=== PATIENT | female | born 1935 | race Caucasian/White ===

== ENCOUNTER 2017-02-11 21:06 | Inpatient (IN) ==
[2017-02-11] MEDS ORDERED: Ondansetron ODT 4 MG TAB.RAPDIS SL ONE (22:55)
--- NOTE | 2017-02-11 23:02 | Emergency Department Note ---
Disposition Clinical Impression: Elevated troponin, NSTEMI (non-ST elevated myocardial infarction) Nausea & vomiting Qualifiers: Vomiting type: unspecified Vomiting Intractability: unspecified Qualified Code( s): R11.2 - Nausea with vomiting, unspecified Disposition: Admitted As Inpatient Condition: Good Referrals: NONE,PCP [Primary Care Provider] - Forms: ED Satisfaction Letter Time of Disposition: 02:30 Nausea/Vomiting/Diarrhea HPI - General Chief complaint: ED Nausea/Vomiting/Diarrhea Stated complaint: N/V/epigastric pain Time Seen by Provider: 02/11/17 22:45 Source: patient, family (DAUGHTER IN LAW) Mode of arrival: ambulatory Limitations: no limitations Nursing Notes Reviewed: Yes Vital Signs Reviewed: Yes - History of Present Illness HPI Narrative: 81-year-old female history of hypertension and GERD presents to the ED for nausea vomiting and epigastric pain. States this afternoon around 1730 patient ate a sandwich and snack, she felt a sharp sensation in her epigastric region shooting to the back. Immediately afterwards she vomiting the food back up with some green fluid. Later she had return of nausea and decided to take a [place] she does have a history of reflux she proceeded to vomit once more. She denies any recent illness, fever, cough, chest pain or shortness of breath. She denies any diaphoresis. She takes Prevacid for past several years for her reflux. She has a pacemaker and recently had it replaced by her hat blocker at [facility] in Aug 2016. History of appendicitis and partial hysterectomy. 3 bowel movements today no urinary complaints. No history of cardiac ischemic disease. Denies any alcohol use. No other sick contacts or recent travel. No pain at this time. Will get basic labs, lipase, urinalysis evaluated for possible gallbladder disease. Zofran for nausea. Will also get a troponin and EKG to evaluate for possible ACS. Patient and family are in agreement with this plan. Pt Subjective Complaint: nausea, vomiting, abdominal pain - Related Data Allergies Allergy/AdvReac Type Severity Reaction Status Date / Time codeine Allergy See Verified 02/11/17 21:10 Comments meperidine [From Demerol] Allergy See Verified 02/11/17 21:10 Comments All systems ED: reviewed and negative except as stated. Review of Systems: As Per HPI Constitutional: Denies: fever, chills Cardiovascular: Denies: chest pain, palpitations, dyspnea on exertion Respiratory: Denies: cough, dyspnea Gastrointestinal: Reports: abdominal pain, nausea, vomiting. Denies: diarrhea, melena, hematochezia Genitourinary: Denies: urgency, dysuria Musculoskeletal: Denies: back pain, neck pain Integumentary: Denies: rash, abrasion Neurological: Denies: headache, weakness Past Medical History - Past Medical History Attestation: Yes The following information was validated with the patient. Source: patient Medical history: Reports: GERD, hyperlipidemia, hypertension Psychiatric history: Reports: no psych history - Social History Smoking Status: Never smoker Smokeless Tobacco Status: No Alcohol use: Reports: none Drug use: Reports: none Physical Exam - General Limitations: no limitations General appearance: alert, in no apparent distress - Head Head exam: atraumatic, normocephalic, normal inspection - Eye Eye exam: Present: normal appearance, PERRL, EOMI. Absent: scleral icterus - ENT ENT exam: normal exam, normal oropharynx, mucous membranes moist - Neck Neck exam: Present: normal inspection, full ROM, trachea midline - Chest Chest inspection: Present: normal inspection, symmetric chest wall rise, other ( scar on left anterior chest wall for pacemaker) - Respiratory Respiratory exam: Present: normal lung sounds bilaterally. Absent: respiratory distress - Cardiovascular Cardiovascular exam: Present: regular rate, normal rhythm, normal heart sounds - Abdominal Exam Abdominal exam: Present: soft, tenderness, normal bowel sounds. Absent: Non- Tender, distention, guarding, rebound, rigidity, Cobos's sign Abdominal tenderness: Present: epigastrium - Extremities Exam Extremities exam: Present: normal inspection, full ROM, normal capillary refill. Absent: tenderness, pedal edema, calf tenderness - Back Exam Back exam: Present: normal inspection, full ROM. Absent: tenderness, CVA tenderness (R), CVA tenderness (L) - Neurological Exam Neurological exam: Present: alert, oriented X3 - Psychiatric Psychiatric exam: Present: normal affect, normal mood - Skin Skin exam: Present: warm, dry, intact, normal color. Absent: rash Course - Reevaluation(s) Reevaluation #1: EKG does not show any acute ischemic changes. She does have a paced rhythm but no Sgarbossa criteria. Upon my initial valuation she only reported nausea no pain. Labs are drawn and shown a elevation of her troponin 0.10. A chest x- ray was added, does not show any signs of pneumonia or other cardiopulmonary disease/process. She does not have any prior troponin levels into not give me any reason to believe she has a chronically elevated troponin. Creatinine is normal. Urine does not appear consistent with infection, appears contaminated and without urinary symptoms will not treat and await cultures. Patient was given aspirin. She denies any hemoptysis, bloody urine or bloody stool. Will placed on low-dose heparin it however admitted to medicine. Patients in agreement with this plan. Bedside ultrasound was performed in showed a gallstone without any increased thickness of her anterior wall or pericholecystic fluid. G.I. cocktail was given for return his symptoms, she reports nausea with her codeine and when I offered her morphine she was highly against it. Would prefer Tylenol if the pain does not improve. Patient will be admitted awaiting hospitalist page. Time: 01:28 - Consultations Consultation #1: Spoke with on-call hospitalist carolin Nunez to admit for elevated troponin, NSTEMI, epigastric pain. No further orders at this time Time: 02:29 Vital Signs Temperature 97.5 F L 02/11/17 21:11 Pulse Rate 68 02/11/17 21:11 Respiratory Rate 16 02/11/17 21:11 Blood Pressure 131/78 02/11/17 21:11 O2 Sat by Pulse Oximetry 97 02/11/17 21:11 Temperature 97.5 F L 02/11/17 21:11 Pulse Rate 74 02/12/17 01:44 Respiratory Rate 18 02/12/17 01:44 Blood Pressure 144/69 02/12/17 01:44 O2 Sat by Pulse Oximetry 96 02/12/17 01:44 Oxygen Delivery Oxygen Delivery Nasal Cannula Nausea/Vomiting/Diarrhea - Medical Records Medical records reviewed: Yes I reviewed the patient's medical records. - Lab Data Lab results reviewed: Yes I reviewed the patient's lab results. Result diagrams: 02/11/17 23:13 02/11/17 23:13 Lab Results 02/11/17 02/11/17 02/11/17 Range/Units 23:13 23:13 23:13 WBC 9.9 (4.3-11.1) K/mcL RBC 4.22 (3.82-4.97) M/mcL Hgb 13.2 (11.5-15.4) g/dL Hct 39.7 (35.3-44.9) % MCV 94.1 (83.0-100.0) fL MCH 31.3 (28.0-33.3) pg MCHC 33.2 (31.6-35.5) g/dL RDW 12.0 (11.5-14.5) % Plt Count 247 (140-400) K/mcL MPV 10.2 (9.4-12.4) fL Immature Gran % 0.5 (0-4) % Seg Neutrophils % 83.8 % Lymphocytes % 11.7 % Monocytes % 3.4 % Eosinophils % 0.3 % Basophils % 0.3 % Neutrophils # 8.3 (1.6-8.9) K/mcL Lymphocytes # 1.2 (0.6-4.6) K/mcL Monocytes # 0.3 (0.0-1.3) K/mcL Eosinophils # 0.0 (0.0-0.6) K/mcL Basophils # 0.0 (0.0-0.2) K/mcL PT (9.4-12.1) Seconds INR APTT (26.0-36.0) Seconds Sodium 138 (136-145) mEq/L Potassium 3.7 (3.5-4.5) mEq/L Chloride 102 (98-109) mEq/L Carbon Dioxide 25 (19-29) mEq/L BUN 20 (7-20) mg/dL Creatinine 0.92 (0.57-1.11) mg/dL Est GFR ( Amer) > 60 (> 60) Est GFR (Non-Af Amer) 59 L (> 60) BUN/Creatinine Ratio 22 (6-26) Glucose 124 H (70-99) mg/dL Calculated Osmolality 290 (280-300) Calcium 10.0 (8.6-10.8) mg/dL Total Bilirubin 0.6 (0.2-1.2) mg/dL AST 20 (5-34) Units/L ALT 23 (0-55) Units/L Alkaline Phosphatase 90 (38-126) Units/L Troponin I 0.10 H* (0-0.03) ng/mL Serum Total Protein 7.6 (6.0-8.3) g/dL Albumin 4.1 (3.5-5.0) g/dL Globulin 3.5 (2.4-3.5) g/dL Albumin/Globulin Ratio 1.2 (1.1-2.2) Lipase 40 (8-78) Units/L Urine Color (Yellow) Urine Clarity (Clear) Urine pH (5.0-8.0) pH Units Ur Specific [place] (1.010-1.025) Urine Protein (Neg-Trace) mg/dL Urine Glucose (UA) (Normal) mg/dL Urine Ketones (Negative) mg/dL Urine Blood (Negative) Urine Nitrite (Negative) Urine Bilirubin (Negative) Urine Urobilinogen (Normal) mg/dL Ur Leukocyte Esterase (Negative) Urine Microscopic RBC (0-3) per hpf Urine Microscopic WBC (0-3) per hpf Ur Squamous Epith Cells (None-Few) per lpf Urine Bacteria (None-Few) per hpf Hyaline Casts (None-Few) per lpf Ur Culture Indicated? (NO) 02/11/17 02/12/17 Range/Units 23:13 00:07 WBC (4.3-11.1) K/mcL RBC (3.82-4.97) M/mcL Hgb (11.5-15.4) g/dL Hct (35.3-44.9) % MCV (83.0-100.0) fL MCH (28.0-33.3) pg MCHC (31.6-35.5) g/dL RDW (11.5-14.5) % Plt Count (140-400) K/mcL MPV (9.4-12.4) fL Immature Gran % (0-4) % Seg Neutrophils % % Lymphocytes % % Monocytes % % Eosinophils % % Basophils % % Neutrophils # (1.6-8.9) K/mcL Lymphocytes # (0.6-4.6) K/mcL Monocytes # (0.0-1.3) K/mcL Eosinophils # (0.0-0.6) K/mcL Basophils # (0.0-0.2) K/mcL PT 10.9 (9.4-12.1) Seconds INR 1.0 APTT 27.9 (26.0-36.0) Seconds Sodium (136-145) mEq/L Potassium (3.5-4.5) mEq/L Chloride (98-109) mEq/L Carbon Dioxide (19-29) mEq/L BUN (7-20) mg/dL Creatinine (0.57-1.11) mg/dL Est GFR ( Amer) (> 60) Est GFR (Non-Af Amer) (> 60) BUN/Creatinine Ratio (6-26) Glucose (70-99) mg/dL Calculated Osmolality (280-300) Calcium (8.6-10.8) mg/dL Total Bilirubin (0.2-1.2) mg/dL AST (5-34) Units/L ALT (0-55) Units/L Alkaline Phosphatase (38-126) Units/L Troponin I (0-0.03) ng/mL Serum Total Protein (6.0-8.3) g/dL Albumin (3.5-5.0) g/dL Globulin (2.4-3.5) g/dL Albumin/Globulin Ratio (1.1-2.2) Lipase (8-78) Units/L Urine Color Yellow (Yellow) Urine Clarity Clear (Clear) Urine pH 6.0 (5.0-8.0) pH Units Ur Specific [place] 1.024 (1.010-1.025) Urine Protein Negative (Neg-Trace) mg/dL Urine Glucose (UA) Normal (Normal) mg/dL Urine Ketones 15 H (Negative) mg/dL Urine Blood Negative (Negative) Urine Nitrite Negative (Negative) Urine Bilirubin Negative (Negative) Urine Urobilinogen Normal (Normal) mg/dL Ur Leukocyte Esterase Large H (Negative) Urine Microscopic RBC 5-15 H (0-3) per hpf Urine Microscopic WBC 30-50 H (0-3) per hpf Ur Squamous Epith Cells Many H (None-Few) per lpf Urine Bacteria None Seen (None-Few) per hpf Hyaline Casts None Seen (None-Few) per lpf Ur Culture Indicated? YES A (NO) - Radiology Data Radiology results reviewed: Yes I reviewed the patient's radiology results. Chest X-Ray 02/12/17 00:09 IMPRESSION: 1. No acute consolidation. 2. Dual lead cardiac pacer in place. D/ / Baljeet Rush MD / Baljeet Rush MD Interpreting Provider: Baljeet Rush MD - EKG Data EKG attestation: Yes I reviewed and interpreted this EKG. EKG results narrative: EKG performed 2116 electrical atrial and ventricular paced rhythm 69 bpm. No Sgarbossa criteria. Compared to old EKG performed 06/01/1996 which at that time showed a sinus rhythm with PVC. There does not appear to be any acute ischemic changes at this time. No active chest pain at this time.
[2017-02-11 23:27] LABS: Basophils % 0.3 %; Eosinophils % 0.3 %; Hematocrit 39.7 % (35.3-44.9); Hemoglobin 13.2 g/dL (11.5-15.4); Immature Granulocytes % 0.5 % (0-4); Lymphocytes # 1.2 K/mcL (0.6-4.6); Lymphocytes % 11.7 %; Mean Corpuscular HGB Conc 33.2 g/dL (31.6-35.5); Mean Corpuscular Hemoglobin 31.3 pg (28.0-33.3); Mean Corpuscular Volume 94.1 fL (83.0-100.0); Mean Platelet Volume 10.2 fL (9.4-12.4); Monocytes # 0.3 K/mcL (0.0-1.3); Monocytes % 3.4 %; Neutrophils # 8.3 K/mcL (1.6-8.9); Platelet Count 247 K/mcL (140-400); Red Blood Count 4.22 M/mcL (3.82-4.97); Segmented Neutrophils % 83.8 %
--- NOTE | 2017-02-11 23:35 | Emergency Department Note ---
START Narrative - START START: I examined this patient and my medical decision-making was reviewed with the Resident Physician. I agree with the documented findings, disposition and treatment plan as described except to the extent set forth below. Note female presents emergency room for epigastric pain that radiates to her back. Happened after eating today. assoc with some nausea and vomiting. No diarrhea. Check some labs. do a bedside ultrasound of her gallbladder.
[2017-02-11 23:40] LABS: Alanine Aminotransferase 23 Units/L (0-55); Albumin 4.1 g/dL (3.5-5.0); Albumin/Globulin Ratio 1.2 (1.1-2.2); Alkaline Phosphatase 90 Units/L (38-126); Aspartate Amino Transferase 20 Units/L (5-34); BUN/Creatinine Ratio 22 (6-26); Bilirubin,Total 0.6 mg/dL (0.2-1.2); Blood Urea Nitrogen 20 mg/dL (7-20); Carbon Dioxide 25 mEq/L (19-29); Chloride 102 mEq/L (98-109); Globulin 3.5 g/dL (2.4-3.5); Glucose 124 mg/dL (70-99); Lipase 40 Units/L (8-78); Osmolality,Calculated 290 (280-300); Potassium 3.7 mEq/L (3.5-4.5); Sodium 138 mEq/L (136-145); Total Protein 7.6 g/dL (6.0-8.3); eGFR For African Americans > 60 (> 60); eGFR For Non-African Americans 59 (> 60)
[2017-02-12 00:21] LABS: Bilirubin,Urine Negative (Negative); Blood,Urine Negative (Negative); Clarity,Urine Clear (Clear); Color,Urine Yellow (Yellow); Glucose,Urine (UA) Normal (Normal); Ketones,Urine 15 mg/dL (Negative); Leukocyte Esterase,Urine Large (Negative); Nitrite,Urine Negative (Negative); Protein,Urine Negative (Neg-Trace); Specific Gravity,Urine 1.024 (1.010-1.025); Urobilinogen,Urine Normal (Normal)
[2017-02-12 00:23] LABS: Bacteria,Urine None Seen per hpf (None-Few); Hyaline Casts,Urine None Seen per lpf (None-Few); Squamous Epithelial Cell,Urine Many per lpf (None-Few); WBC,Urine 30-50 per hpf (0-3)
[2017-02-12] MEDS ORDERED: *HR* Heparin 5,000 UNIT/ML VIAL IVP ONE (01:15)
[2017-02-12] MEDS ORDERED: *HR* Heparin 5,000 UNIT/ML VIAL IVP PRN ×2 (01:15)
[2017-02-12] MEDS ORDERED: GI Cocktail 40 ML EACH PO ONE (01:16)
[2017-02-12 01:41] LABS: Prothrombin Time 10.9 Seconds (9.4-12.1)
[2017-02-12 01:44] LABS: Activated Partial Thrombo Time 27.9 Seconds (26.0-36.0)
[2017-02-12] MEDS: Heparin 25,000 UNIT/500 ML D5W 25,000 UNIT/500 ML MLS IVC SCH (01:53)
[2017-02-12] MEDS ORDERED: Aspirin 81 MG TAB.CHEW PO STA (02:12)
--- NOTE | 2017-02-12 02:34 | Internal Med History&Physical ---
<Uriel Alexander - Last Filed: 02/12/17 03:51> Date of Encounter: 02/12/17 Time of Encounter: 02:34 Assessment and Plan (1) NSTEMI (non-ST elevated myocardial infarction) Current visit: Yes Status: Acute 81 y/o F hx of HLD, HTN, AV block, PAF with dual chamber pacemaker presents with acute onset of N/V six bouts of vomiting gastric contents including green billious vomiting triggered with food found to have elevated troponin 0.10, no previous troponin on file CXR WNL EKG paced rhythm with no st-t wave changes 2015 echo: 55% LVEF with mild diastolic dysfunciton, mild mitral and tricuspid regurg no previous stress test on file follows [facility] plan: trend troponin atorvastatin b-jayjay heparin gtt lipid panel, tsh, hga1c echocardiogram request records from [facility]. NPO for now if invasive intervention needed consult cardiology (2) Elevated troponin Current visit: Yes Status: Acute plan as above. unclear what her baseline is as she has never had troponin drawn here trend (3) Nausea & vomiting Current visit: Yes Status: Acute hx of GERD N/V and epigastric pain which radiates to back improved with GI cocktail Lipase WNL CXR: no air under diaphragm start pantoprazole Qualifiers: Vomiting type: bilious vomiting Qualified Code(s): R11.14 - Bilious vomiting (4) DVT prophylaxis Current visit: Yes Status: Acute heparin gtt (5) Essential hypertension Current visit: Yes Status: Acute controlled continue home losartan-HTCZ (6) Hyperlipidemia Current visit: Yes Status: Acute atorvastain lipid panel Qualifiers: Hyperlipidemia type: pure hypercholesterolemia Qualified Code(s): E78.00 - Pure hypercholesterolemia, unspecified; E78.0 - Pure hypercholesterolemia Internal Medicine - H&P: HPI Chief complaint: n/v Admitted From: Home Plans for Post Hospital Care: Home History of present illness: Ms. Kay is a 81 year old female hx of PAF, av block with dual chamber pacemaker presents with cc of nausea and vomiting which started yesterday evening after patient had a meal of green beans and cornbread. Patient has sudden onset of sharp epigastric pain that radiated to the back. Thereafter she had 6 additional bouts of vomiting which were triggered by any type of oral intake. Initially vomit contents consisted of ingested food but then progressed to billious content. She denies having this ever before. She denies her symptoms worsening with movement, breathing, position. Patient denies diaphoresis, chest pain, shortness of breath, palpitations. She had 3 formed bowel movements yesterday. She denies any urinary tract symptoms including dysuria, hematuria, increased urinary frequency. Patient received a GI cocktail and emergency department which decreased her pain from 8 out of 10- 3 out of 10. Furthermore her troponin returned elevated at 0.10. Patient was started on a heparin drip. Past Med Surg Social Fam HX - Past Medical History Medical history: GERD, hyperlipidemia, hypertension, other (Paroxysmal atrial tachycardia) Psychiatric history: no psych history - Past Surgical History Surgical History: appendectomy, other (Tonsillectomy) - Social History Smoking Status: Never smoker Smokeless Tobacco Status: No Alcohol use: none Drug use: none Internal Medicine - H&P: Meds Allergies codeine Allergy (Verified 02/11/17 21:10) See Comments meperidine [From Demerol] Allergy (Verified 02/11/17 21:10) See Comments All Systems PM: A 10-system review of systems was performed and is negative for pertinent findings except as documented above in the HPI. Review of systems: Constitutional: Denies fever, chills HEENT: Denies headache, vision changes, neck pain, sore throat, rhinorrhea Heart: Denies chest pain palpitations Lungs: Denies shortness of breath cough Abdomen: Reports epigastric pain, nausea, vomiting Back: Denies back pain Kidney: Denies dysuria, hematuria Extremities: Denies swelling, pain Neuro: Denies numbness, and tingling - Constitutional Vitals: Temp Pulse Resp BP Pulse Ox 97.5 F L 74 18 144/69 96 02/11/17 21:11 02/12/17 01:44 02/12/17 01:44 02/12/17 01:44 02/12/17 01:44 - Other Additional findings: General: Alert and oriented to place time and situation. Without distress HEENT: Head atraumatic, normocephalic, EOMI, PERRLA, neck nontender to palpation , absent Lymphadenopathy, Moist Mucous Membranes, Heart: Regular rate and rhythm with no murmur Lungs: Clear to auscultation bilaterally Abdomen: Mild tenderness to epigastric region with palpation. Positive bowel sounds. Otherwise soft nontender abdomen. Extremities: Absent pedal edema, Neuro: Cranial nerves II through XII intact, sensation equal bilaterally, strength upper and lower extremity 5/5, alert oriented 3 Vascular: Pedal and radialpulses 2 out of 4 Internal Med - H&P Results - Labs CBC & Chem 7: 02/11/17 23:13 02/11/17 23:13 Labs: Short CBC 02/11/17 Range/Units 23:13 WBC 9.9 (4.3-11.1) K/mcL Hgb 13.2 (11.5-15.4) g/dL Hct 39.7 (35.3-44.9) % Plt Count 247 (140-400) K/mcL Neutrophils # 8.3 (1.6-8.9) K/mcL BMP 02/11/17 23:13 Sodium 138 Potassium 3.7 Chloride 102 Carbon Dioxide 25 BUN 20 Creatinine 0.92 Glucose 124 H Calcium 10.0 Cardiac Enzymes 02/11/17 Range/Units 23:13 Troponin I 0.10 H* (0-0.03) ng/mL Liver Function 02/11/17 Range/Units 23:13 Total Bilirubin 0.6 (0.2-1.2) mg/dL AST 20 (5-34) Units/L ALT 23 (0-55) Units/L Alkaline Phosphatase 90 (38-126) Units/L Albumin 4.1 (3.5-5.0) g/dL Urine 02/12/17 Range/Units 00:07 Urine Color Yellow (Yellow) Urine Clarity Clear (Clear) Urine pH 6.0 (5.0-8.0) pH Units Ur Specific [employer] 1.024 (1.010-1.025) Urine Protein Negative (Neg-Trace) mg/dL Urine Glucose (UA) Normal (Normal) mg/dL - Impressions ITS Impressions Chest X-Ray 02/12/17 00:09 IMPRESSION: 1. No acute consolidation. 2. Dual lead cardiac pacer in place. D/ / Baljeet Rush MD / Baljeet Rush MD Interpreting Provider: Baljeet Rush MD <Saroj Dorantes - Last Filed: 02/12/17 05:59> Date of Encounter: 02/12/17 Internal Medicine - H&P: HPI History of present illness: Ms. Kay is a 81 year old female All Systems PM: A 10-system review of systems was performed and is negative for pertinent findings except as documented above in the HPI. - Constitutional Vitals: Temp Pulse Resp BP Pulse Ox 97.5 F L 62 18 137/69 94 02/12/17 04:28 02/12/17 04:28 02/12/17 04:28 02/12/17 04:28 02/12/17 04:28 Internal Med - H&P Results - Labs CBC & Chem 7: 02/11/17 23:13 02/11/17 23:13 Labs: Cardiac Enzymes 02/12/17 Range/Units 04:37 Troponin I 0.43 H* (0-0.03) ng/mL - Attending Attestation I examined this patient and my medical decision-making was reviewed with the Resident Physician, Dr. Uriel Alexander. I agree with the documented findings, disposition and treatment plan as described except to the extent set forth below. I have independently obtained history and examined the patient and my findings are summarized below: Patient presented to the hospital with nausea, vomiting and epigastric abdominal pain. On exam she is in no acute distress heart is regular. Lungs are clear. Abdomen soft. EKG is sinus tachycardia with nonspecific changes. Troponin borderline elevated. Plan: Non-ST elevation RI - we will start heparin, trend troponin, heart monitor , nothing by mouth, cardiology consult. Aspirin and beta jayjay.
[2017-02-12] MEDS ORDERED: Naloxone 0.4 MG/ML INJ IVP PRN (03:10)
[2017-02-12] MEDS ORDERED: Ondansetron 4 MG/2 ML VIAL IVP PRN (03:10)
[2017-02-12 05:13] LABS: Hemoglobin A1C 5.8 %
[2017-02-12 05:15] LABS: Chol/HDL Ratio 3.4 (0-4.9); Magnesium 1.7 mg/dL (1.6-2.6)
[2017-02-12 05:38] LABS: Thyroid Stimulating Hormone 1.684 mcIU/mL (0.350-4.840)
[2017-02-12] MEDS: Pantoprazole 40 MG VIAL IVP SCH (08:07)
[2017-02-12] MEDS: Metoprolol XL (24 HR) Succ 25 MG TAB.ER.24H PO SCH (08:07)
[2017-02-12] MEDS ORDERED: Losartan/HCTZ 50-12.5 TABLET PO SCH (09:00)
--- NOTE | 2017-02-12 09:14 | Electrocardiograph Report ---
[address] [place], [place] [address] Test Date: 2017-02-11 Pat Name: Melvina Rahul Department: 102 Room: 3A42 Gender: F Transportation Assistant: [facility] : 1935 Requested By: Lincoln Cameron Order Number: [id number] Reading MD: Jessica Fernandez Measurements Intervals [place] Rate: 69 P: 148 UT: 162 QRS: -61 QRSD: 202 T: 98 QT: 466 QTc: 486 Interpretive Statements ELECTRONIC ATRIAL PACEMAKER ELECTRONIC VENTRICULAR PACEMAKER ABNORMAL RHYTHM ECG Electronically Signed On 02-12-2017 9:12:57 EDT by Jessica Fernandez
--- NOTE | 2017-02-12 10:57 | Cardiology Consult Note ---
Date of Encounter: 02/12/17 Time of Encounter: 11:00 Assessment and Plan (1) Nausea & vomiting Current Visit: Yes Status: Chronic Per Cardiology: Patient with apparent long-standing history of nausea and vomiting, however symptoms worse from her baseline. Currently resolved. Further management per primary service. Qualifiers: Vomiting type: bilious vomiting Qualified Code(s): R11.14 - Bilious vomiting (2) NSTEMI (non-ST elevated myocardial infarction) Current Visit: Yes Status: Acute Per Cardiology: Troponins noted to be elevated at 0.10, 0.43, and 0.54. Chest pain-free. Symptoms somewhat atypical. ECG nondiagnostic due to pacemaker. Patient with risk factors including age, hypertension, hyperlipidemia, strong family history. He reported no known history of CAD with last catheterization about 20 years ago. Discussed and reviewed with Dr. Javier Fernandez and Dr. Jessica Fernandez and recommendations for left heart catheterization. Echo pending. Currently on heparin drip, statin, beta jayjay, ARB. We'll add aspirin. Further recommendations after echo and cath. Cardiac rehabilitation consult placed. All questions answered. Patient verbalized understanding and agree to plan. Discussion w patient/family: The assessment and plan as outlined above was discussed with the patient and/or family members who expressed understanding and agreement. All questions were answered. Thank you for involving us in the care of your patient. Please call with any questions. History of Present Illness Consult date: 02/12/17 Consult reason: Elevated Trop Chief complaint: N&V History of present illness: Ms. Kay is a 81 year old female with relevant past medical history of hypertension, hyperlipidemia, GERD, history of pacemaker reportedly placed initially in 1996. Reports most recent generator change with [facility] cardiology August 2016. She reports last heart catheterization about 20 years ago and no known history of CAD. Cardiology consult for nausea and vomiting/elevated troponins. Patient reports she lives at home and fairly active doing yard work. She reports occasional dyspnea exertion, however unchanged from baseline. She denies any increased fatigue. She denies any chest pain at rest or with exertion. She denies any dizziness, palpitations, syncope, falls. Denies any active bleeding or blood loss. Denies any recent infectious process. Denies any urinary frequency, burning, hematuria. Reports chronic history of nausea and vomiting. She reports this episode worse than her normal with repetitive vomiting of green bile-like fluid. She reports occurred after dinner while sitting at rest. Denies any current symptoms. Reports family history mother dying at age 63 of a myocardial infarction and had brother with CABG in his late 50s. Past Med Surg Social Fam HX - Past Medical History Attestation: Yes The following information was validated with the patient. Source: patient, old records reviewed, obtained from family Medical history: GERD, hyperlipidemia, hypertension, other Psychiatric history: no psych history - Past Surgical History Surgical History: appendectomy, other - Social History Smoking Status: Never smoker Smokeless Tobacco Status: No Alcohol use: none Drug use: none - Family History Mother Age at : 63 Cause of : [place] Brother Hx Family Cardiac Disorders: Yes (CABG in his 50's) Medications and Allergies Acetaminophen [Tylenol] 325 mg PO Q6HR PRN 02/12/17 [History] Bifidobacterium Infantis [Align] 4 mg PO DAILY 02/12/17 [History] Fexofenadine HCl 60 mg PO DAILY 02/12/17 [History] Lansoprazole [Prevacid] 15 mg PO QAM PRN 02/12/17 [History] Losartan/Hydrochlorothiazide [Hyzaar 100-25 Tablet] 1 tab PO DAILY 02/12/17 [ History] Mometasone Furoate [Nasonex] 1 spray NS DAILY 02/12/17 [History] Pravastatin Sodium [Pravachol] 40 mg PO DAILY 02/12/17 [History] Allergies codeine Allergy (Verified 02/11/17 21:10) See Comments meperidine [From Demerol] Allergy (Verified 02/11/17 21:10) See Comments All Systems Review: A 10-system review of systems was performed and is negative for pertinent findings except as documented above in the HPI. - Cardiovascular Cardiovascular: as per HPI, dyspnea on exertion - Gastrointestinal Gastrointestinal: nausea Physical Examination Selected Entries 02/12/17 08:24 02/12/17 11:49 Temperature 98.2 F Pulse Rate 70 Respiratory Rate 16 Blood Pressure 128/76 O2 Sat by Pulse Oximetry 91 Oxygen Flow Rate (LPM) 2 Oxygen Delivery Method Nasal Cannula General: Conversant, No Apparent Distress HEENT: Atraumatic, Normocephaly, Mucus Membranes Moist Neck: No JVD, Normal carotid pulses Cardiac: Reg Rate and Rhythm, Normal S1 and S2, No Murmur Lungs: Normal Breath Sounds, No Wheeze, Rales, Rhonchi Neuro: Alert and responsive, No focal deficits noted Abdomen: Soft, Non-Tender Skin: No rashes noted on visualized skin Musculoskeletal: No Chest Wall Tenderness Extremities: No Clubbing, No Cyanosis, No Edema, Normal Pulses Results 02/11/17 23:13 02/11/17 23:13 Lab Results Laboratory Tests 02/11/17 02/11/17 02/11/17 23:13 23:13 23:13 INR 1.0 Potassium 3.7 Creatinine 0.92 Est GFR (Non-Af Amer) 59 L Hemoglobin A1c Magnesium AST 20 ALT 23 Troponin I 0.10 H* TSH 02/12/17 02/12/17 02/12/17 04:37 04:37 04:37 INR Potassium Creatinine Est GFR (Non-Af Amer) Hemoglobin A1c 5.8 H Magnesium 1.7 AST ALT Troponin I 0.43 H* TSH 1.684 02/12/17 09:58 INR Potassium Creatinine Est GFR (Non-Af Amer) Hemoglobin A1c Magnesium AST ALT Troponin I 0.54 H* TSH ITS Impressions Chest X-Ray 02/12/17 00:09 IMPRESSION: 1. No acute consolidation. 2. Dual lead cardiac pacer in place. D/ / Baljeet Rush MD / Baljeet Rush MD Interpreting Provider: Baljeet Rush MD Intake & Output 02/09/17 02/10/17 02/11/17 02/12/17 23:59 23:59 23:59 23:59 Intake Total 130 / 130 Output Total 300 / 300 Balance -170 / -170 Weight 78.018 kg 84.5 kg Active Medications Atorvastatin Calcium (Lipitor) 80 mg PO HS JAYE Stop: 08/14/17 03:16 Last Admin: 02/12/17 04:54 Dose: Not Given HCTZ/Losartan Potassium (Hyzaar 50/12.5) 2 each PO DAILY JAYE Stop: 08/14/17 09:01 Last Admin: 02/12/17 08:08 Dose: 2 each Heparin Sodium (Porcine) (Heparin) 4,000 unit IVP Q6HR PRN PRN Reason: SEE COMMENTS Stop: 08/14/17 01:16 Heparin Sodium (Porcine) (Heparin) 2,000 unit IVP Q6H PRN PRN Reason: SEE COMMENTS Stop: 08/14/17 01:16 Heparin Sodium/Dextrose (Heparin 25,000 Unit/500 Ml D5w) 25,000 unit in 500 mls @ 18.724 mls/hr IVC .Q24H JAYE; 12 UNIT/KG/HR PRN Reason: Protocol Stop: 08/14/17 01:16 Last Titration: 02/12/17 09:13 Dose: 12 unit/kg/hr, 18.724 mls/hr Metoprolol Succinate (Toprol Xl) 12.5 mg PO DAILY JAYE Stop: 08/14/17 09:01 Last Admin: 02/12/17 08:07 Dose: 12.5 mg Naloxone HCl (Narcan) 0.4 mg IVP Q2MIN PRN PRN Reason: Opioid Reversal Stop: 08/14/17 03:11 Ondansetron HCl (Zofran) 4 mg IVP Q8HR PRN PRN Reason: Nausea And Vomiting Stop: 08/14/17 03:11 Pantoprazole Sodium (Protonix) 40 mg IVP 0630 [facility] Stop: 08/14/17 06:31 Last Admin: 02/12/17 08:07 Dose: 40 mg - Imaging and Cardiology Chest Xray: report reviewed Echo: pending Cardiac cath: pending - EKG Interpretation EKG results cardiology: personally reviewed (V paced) Consult Discharge Plan - Plan Referrals: NONE,PCP [Primary Care Provider] -
[2017-02-12] MEDS ORDERED: *HR* Heparin 10,000 UNIT/10 ML VIAL ONE (13:00)
[2017-02-12] MEDS ORDERED: 0.9 % Sodium Chloride 1,000 ML ONE (13:00)
[2017-02-12] MEDS ORDERED: Heparin 1,000 UNITS/500 mL NS 0 ML ONE (13:00)
[2017-02-12] MEDS ORDERED: Nitroglycerin 1,000 MCG/10 ML VIAL IV ONE (13:00)
--- NOTE | 2017-02-12 13:23 | Pre-Sedation Evaluation ---
Pre-sedation evaluation - Pre-sedation checklist Date of procedure: 02/12/17 Procedure: Heart catheterization Recent Vitals: Last Vital Signs Temp 98.2 F 02/12/17 11:49 Pulse 70 02/12/17 11:49 Resp 16 02/12/17 11:49 BP 128/76 02/12/17 11:49 Pulse Ox 91 02/12/17 11:49 H&P (including ROS) documented in medical record: Yes Previous reaction to sedatives/anesthetics: No Dietary Status: NPO after Midnight Airway Assessment: Patient can open mouth completely, TMJ function normal, Micrognathia (under-bite, receding chin) absent, Neck with adequate range of motion Dentition: No loose teeth or bridges Possible difficult airway: No ASA Classification *see protocol: CLASS II-Mild systemic disease Plan of Care: Pt appropriate candidate for procedure/moderate/conscious sedation , Risks/benefits of procedure/sedation discussed w/ patient/family
--- NOTE | 2017-02-12 14:07 | Event Note ---
Date of Encounter: 02/12/17 Time of Encounter: 14:00 - Cardiology Event Note Patient reevaluated with daughter and son at bedside. I was notified of apparent gallbladder ultrasound completed in the ER last night with reported gallstone. However, upon review of medical records, no report noted and no documentation of any ultrasound findings. It does appear in ER note there was a mention of possible bedside ultrasound. We will cancel left heart catheterization for now. Will check ultrasound to rule out gallstone as suspect symptoms seem to correlate and could explain mild troponin elevation. Will cancel Cardiac Rehab C/S since this may now be demand ischemia presentation. We' ll continue heparin drip for now until echo results. Follow echo. Patient and family agreeable to plan.
--- NOTE | 2017-02-12 16:12 | Internal Med Progress Note ---
Date of Encounter: 02/12/17 Time of Encounter: 10:00 - Assessment and plan (1) NSTEMI (non-ST elevated myocardial infarction) Current Visit: Yes Status: Acute Assessment and plan: Non-ST elevation [place] - risk factors include hypertension, hyperlipidemia and strong family history Patient presented with complaints of acute onset of nausea and vomiting History of PAF with dual-chamber pacemaker Continue aspirin, statin, beta jayjay, IV heparin Chest x-ray - no acute process EKG - sinus rhythm with no acute ST changes Echocardiogram - pending Troponin - 0.54 Cardiology consult - recommended echocardiogram and left heart catheter, hold until ultrasound gallbladder is complete Cardiac telemetry, labs in a.m. (2) Nausea & vomiting Current Visit: Yes Status: Acute Assessment and plan: Patient does have a history of GERD and history of chronic nausea and vomiting - presents to do his vomiting worse with food intake Continue IV pantoprazole, IV Zofran Ultrasound gallbladder - pending Qualifiers: Vomiting type: bilious vomiting Qualified Code(s): R11.14 - Bilious vomiting (3) Essential hypertension Current Visit: Yes Status: Chronic Assessment and plan: Essential hypertension, controlled, continue home meds, monitor (4) Hyperlipidemia Current Visit: Yes Status: Chronic Assessment and plan: Continue statin Qualifiers: Hyperlipidemia type: pure hypercholesterolemia Qualified Code(s): E78.00 - Pure hypercholesterolemia, unspecified; E78.0 - Pure hypercholesterolemia - Time Spent With Patient less than 15 minutes - Subjective Interval history: The patient is awake and alert. Not in any distress. Denies chest pain or shortness of breath. She states her nausea and vomiting have now improved. Troponin is 0.54. Cardiology has evaluated the patient. There is also concern for possible gallbladder stones. Left heart cath is on hold for now. Continue IV heparin protocol. Patient has no other acute events or complaints. - Constitutional Vitals: Temp Pulse Resp BP Pulse Ox 97.6 F 70 16 127/69 94 02/12/17 15:03 02/12/17 15:03 02/12/17 15:03 02/12/17 15:03 02/12/17 15:03 General appearance: Present: A&O X 3, pleasant, no acute distress, answers questions appropriately - Head Head exam: Present: atraumatic - Eye Eye exam: Present: EOMI - ENT ENT exam: Present: mucous membranes dry - Neck Neck exam general surgery: Present: supple - Respiratory Respiratory exam: Present: CTAB. Absent: rales, rhonchi, wheezes, tachypnea - Cardiovascular Cardiovascular exam: Present: RRR, +S1, +S2 - GI/Abdominal GI/Abdominal exam: Present: tenderness (Mild epigastric tenderness), no peritoneal signs. Absent: distended, firm, guarding, soft - Extremities Exam Extremities exam: Present: radial pulses palpable and symetrical. Absent: cyanotic, pedal edema, tenderness - Neurological Exam Neurological exam: Present: alert, oriented X3, no focal deficits Internal Medicine: Result - Labs CBC & Chem 7: 02/11/17 23:13 02/11/17 23:13 Labs: Cardiac Enzymes 02/12/17 Range/Units 09:58 Troponin I 0.54 H* (0-0.03) ng/mL - ABG Interpretation ABG results: PT/INR, D-dimer PT 10.9 Seconds (9.4-12.1) 02/11/17 23:13 Consult Discharge Plan - Plan Referrals: NONE,PCP [Primary Care Provider] -
[2017-02-13 05:25] LABS: Alanine Aminotransferase 16 Units/L (0-55); Albumin 3.3 g/dL (3.5-5.0); Alkaline Phosphatase 81 Units/L (38-126); Aspartate Amino Transferase 17 Units/L (5-34); BUN/Creatinine Ratio 18 (6-26); Bilirubin,Total 0.8 mg/dL (0.2-1.2); Blood Urea Nitrogen 17 mg/dL (7-20); Calcium 9.4 mg/dL (8.6-10.8); Carbon Dioxide 28 mEq/L (19-29); Chloride 100 mEq/L (98-109); Globulin 3.3 g/dL (2.4-3.5); Glucose 113 mg/dL (70-99); Osmolality,Calculated 286 (280-300); Potassium 3.4 mEq/L (3.5-4.5); Sodium 137 mEq/L (136-145); Total Protein 6.6 g/dL (6.0-8.3); eGFR For African Americans > 60 (> 60); eGFR For Non-African Americans 58 (> 60)
[2017-02-13] MEDS: Pantoprazole 40 MG VIAL IVP SCH (06:18)
[2017-02-13] MEDS: Heparin 25,000 UNIT/500 ML D5W 25,000 UNIT/500 ML MLS IVC SCH (06:18)
--- NOTE | 2017-02-13 07:26 | Cardiology Progress Note ---
Date of Encounter: 02/13/17 Time of Encounter: 07:20 Assessment and Plan (1) Nausea & vomiting Current Visit: Yes Status: Acute Per Cardiology: Patient with apparent long-standing history of nausea and vomiting, however symptoms worse from her baseline. Currently resolved. Right upper quadrant ultrasound showed: "gallstones and gallbladder wall thickening with no sonographic Cobos sign, acute cholecystitis needs to be considered with consideration for HIDA scan. Patient reports requesting discharge and desire to follow up in [place]. Further management per primary service. Qualifiers: Vomiting type: bilious vomiting Qualified Code(s): R11.14 - Bilious vomiting (2) NSTEMI (non-ST elevated myocardial infarction) Current Visit: Yes Status: Acute Per Cardiology: Troponins noted to be elevated at 0.10, 0.43, 0.54, and now 0.40. Chest pain- free. Symptoms somewhat atypical. ECG nondiagnostic due to pacemaker. Patient with risk factors including age, hypertension, hyperlipidemia, strong family history. Last catheterization about 20 years ago-- no known CAD. Currently on heparin drip, statin, beta jayjay, ARB, aspirin. Last echo May 2016 showed EF 55%. Current echo shows EF down to 40% with "appearance suggestive of significant mid LAD stenosis vs Takutsubo cardiomyopathy". Recommendations for left heart catheterization, however patient reports desire to follow up with her primary cardiology team in [place]. Recommend evaluate for transfer for possible catheterization. It appears patient is requesting to discharge to home. Cardiology will sign off, re-consult if needed or if patient desires to proceed with catheterization at [facility]. Recommend follow-up with her primary cardiology team. Discussion w patient/family: The assessment and plan as outlined above was discussed with the patient and/or family members who expressed understanding and agreement. All questions were answered. Thank you for involving us in the care of your patient. Please call with any questions. Subjective Principal diagnosis: N&V Interval history: Patient denies any concerns or complaints overnight. She denies any chest pain, short of breath, palpitations. Denies any recurrent abdominal pain or nausea and vomiting. She reports pending discharge today per her request and desire to follow up in [place]. Objective Vital Signs, Last 4 Hours Temp Pulse Resp BP Pulse Ox 02/13/17 04:47 97.7 F 86 14 111/76 96 General: Conversant, No Apparent Distress HEENT: Atraumatic, Normocephaly, Mucus Membranes Moist Neck: No JVD, Normal carotid pulses Cardiac: Reg Rate and Rhythm, Normal S1 and S2, No Murmur Lungs: Normal Breath Sounds, No Wheeze, Rales, Rhonchi Neuro: Alert and responsive, No focal deficits noted Abdomen: Soft, Non-Tender Skin: No rashes noted on visualized skin Musculoskeletal: No Chest Wall Tenderness Extremities: No Clubbing, No Cyanosis, No Edema, Normal Pulses Results 02/11/17 23:13 02/13/17 04:53 Lab Results Laboratory Tests 02/11/17 02/12/17 02/12/17 23:13 04:37 09:58 Troponin I 0.10 H* 0.43 H* 0.54 H* 02/12/17 16:09 Troponin I 0.40 H* Impressions Abdomen Ultrasound 02/12/17 18:00 IMPRESSION: Gallstones and gallbladder wall thickening. No sonographic Cobos's sign could be elicited. Acute cholecystitis needs to be considered. HIDA scan should be considered. No biliary dilation. RECOMMENDATIONS: HIDA scan should be considered. D/ / 02/12/2017 18:42:02 Helio Ayers MD / [facility] Interpreting Provider: Helio Ayers MD Active Medications Aspirin (Aspirin) 81 mg PO DAILY JAYE Stop: 08/15/17 09:01 Atorvastatin Calcium (Lipitor) 80 mg PO HS JAYE Stop: 08/14/17 03:16 Last Admin: 02/12/17 23:15 Dose: 80 mg HCTZ/Losartan Potassium (Hyzaar 50/12.5) 2 each PO DAILY JAYE Stop: 08/14/17 09:01 Last Admin: 02/12/17 08:08 Dose: 2 each HCTZ/Losartan Potassium (Hyzaar 50/12.5) 2 each PO DAILY JAYE Stop: 08/15/17 09:01 Heparin Sodium (Porcine) (Heparin) 4,000 unit IVP Q6HR PRN PRN Reason: SEE COMMENTS Stop: 08/14/17 01:16 Heparin Sodium (Porcine) (Heparin) 2,000 unit IVP Q6H PRN PRN Reason: SEE COMMENTS Stop: 08/14/17 01:16 Heparin Sodium/Dextrose (Heparin 25,000 Unit/500 Ml D5w) 25,000 unit in 500 mls @ 18.724 mls/hr IVC .Q24H JAYE; 12 UNIT/KG/HR PRN Reason: Protocol Stop: 08/14/17 01:16 Last Admin: 02/13/17 06:18 Dose: 12 unit/kg/hr, 18.724 mls/hr Ceftriaxone Sodium 1,000 mg/ (Dextrose) 100 mls @ 200 mls/hr IVPB Q24H [facility] Stop: 08/14/17 17:01 Last Infusion: 02/12/17 23:15 Dose: Infused Metoprolol Succinate (Toprol Xl) 12.5 mg PO DAILY [facility] Stop: 08/14/17 09:01 Last Admin: 02/12/17 08:07 Dose: 12.5 mg Naloxone HCl (Narcan) 0.4 mg IVP Q2MIN PRN PRN Reason: Opioid Reversal Stop: 08/14/17 03:11 Ondansetron HCl (Zofran) 4 mg IVP Q8HR PRN PRN Reason: Nausea And Vomiting Stop: 08/14/17 03:11 Pantoprazole Sodium (Protonix) 40 mg IVP 0630 [facility] Stop: 08/14/17 06:31 Last Admin: 02/13/17 06:18 Dose: 40 mg - Imaging and Cardiology Echo: report reviewed - EKG Interpretation EKG results cardiology: other (paced, avg HR 67) Consult Discharge Plan - Plan Referrals: Efren Cameron MD [Partnered Physician] -
[2017-02-13] MEDS: Losartan/HCTZ 50-12.5 TABLET PO SCH (10:27)
[2017-02-13] MEDS: Aspirin 81 MG TAB.CHEW PO SCH (10:27)
[2017-02-13] MEDS: Metoprolol XL (24 HR) Succ 25 MG TAB.ER.24H PO SCH (10:27)
--- NOTE | 2017-02-13 13:23 | Discharge Summary ---
Date of Encounter: 02/13/17 Time of Encounter: 08:30 - Discharge Diagnosis (1) NSTEMI (non-ST elevated myocardial infarction) Priority: Primary Status: Acute Comments: Elevated troponin with atypical symptoms of nausea and vomiting EKG nondiagnostic due to pacemaker Echocardiogram shows LVEF 40% suggestive of significant mid LAD stenosis or Takutsubo cardiomyopathy Cardiology as recommended left heart catheterization Patient wants to follow up with her instant printer operator at [place] Patient is being transferred to [place] (2) Nausea & vomiting Priority: Primary Status: Acute Comments: Likely secondary to cholelithiasis and possible cholecystitis Qualifiers: Vomiting type: bilious vomiting Qualified Code(s): R11.14 - Bilious vomiting (3) UTI (urinary tract infection) Priority: Primary Status: Acute Comments: Acute cystitis present on admission - on IV Rocephin UA positive for leukocyte esterase Cultures pending Qualifiers: Urinary tract infection type: acute cystitis Qualified Code(s): N30.00 - Acute cystitis without hematuria (4) Essential hypertension Priority: Secondary Status: Chronic (5) Hyperlipidemia Priority: Secondary Status: Chronic Qualifiers: Hyperlipidemia type: pure hypercholesterolemia Qualified Code(s): E78.00 - Pure hypercholesterolemia, unspecified; E78.0 - Pure hypercholesterolemia - Discharge Medications Prescriptions: Aspirin 81 mg PO DAILY #30 Atorvastatin [Lipitor] 80 mg PO HS #30 tab Metoprolol XL (24 HR) Succ [Toprol Xl] 12.5 mg PO DAILY #30 Home Medications: Acetaminophen [Tylenol] 325 mg PO Q6HR PRN 02/12/17 [History] Bifidobacterium Infantis [Align] 4 mg PO DAILY 02/12/17 [History] Fexofenadine HCl 60 mg PO DAILY 02/12/17 [History] Lansoprazole [Prevacid] 15 mg PO QAM PRN 02/12/17 [History] Losartan/Hydrochlorothiazide [Hyzaar 100-25 Tablet] 1 tab PO DAILY 02/12/17 [ History] Mometasone Furoate [Nasonex] 1 spray NS DAILY 02/12/17 [History] Aspirin 81 mg PO DAILY #30 02/13/17 [Rx] Atorvastatin [Lipitor] 80 mg PO HS #30 tab 02/13/17 [Rx] Metoprolol XL (24 HR) Succ [Toprol Xl] 12.5 mg PO DAILY #30 02/13/17 [Rx] Allergies/Adverse Reactions: Allergies codeine Allergy (Verified 02/11/17 21:10) See Comments meperidine [From Demerol] Allergy (Verified 02/11/17 21:10) See Comments Procedures/tests Complete & Pending: Procedures Performed prior 72 hours Category Date Time Status CL Cardiac Catheterization [CL] Routine 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 02/12/17 11:24 Stop Req abdominal ultrasound - limited [US abdomen limited] [US Exams 02/12/17 18:00 Draft ] Stat Date of admission: 02/12/17 08:20 Primary care physician: PCP NONE Anticipated date of discharge: 02/13/17 - Patient Status Disposition: Transfer Short-Term Hosp Condition: Good Functional capacity at discharge: independent ambulation Overall status at discharge: patient is progressing back to baseline - Discharge Instructions Follow Up With: Efren Cameron MD [Partnered Physician] - - Diet and Activity Activity: increase activity as tolerated Diet: low fat, low cholesterol Hospital course: Ms. Kay is a 81 year old female with past medical history GERD, hyperlipidemia , hypertension and status post pacemaker. She presented to the ED with complaints of nausea and vomiting. She also had some epigastric pain that radiated to the back. It was worse with food intake. Her emesis contained initially ingested food and then progress to bilious content. She denied chest pain or shortness of breath or palpitations initially. She received GI cocktail with TB and that improved her pain. Troponin was elevated at 0.10 initially and she was started on IV heparin drip as per protocol. Her troponin continued to bump up. Patient was admitted for non-ST elevation [place]. Patient was evaluated by cardiology. Echocardiogram revealed LVEF 40% suggestive of mid LAD stenosis or Takutsubo Cardiomyopathy. Patient also had a ultrasound of the gallbladder with gallstones and possible acute cholecystitis. This could be causing her nausea and vomiting and abdominal pain as well. She was recommended left heart catheterization by cardiology. Patient has refused to get this done here and wants to follow up with her instant printer operator at [place]. She initially refused transfer to [place], and wanted to go home. But eventually agreed for transfer after discussing with her sons. Patient is being transferred to [place] under Dr. Willams who is her instant printer operator. Patient has been continued on her IV heparin. Patient and family have been explained about guarded condition and plan of care. They understood and agreed. They are adamant about transfer at this time. Patient is being transferred via ambulance. She is being transferred in a stable condition. No other acute events or complications during her stay in the hospital. Patient's symptoms have now resolved and she states she feels better. - Time Spent with Patient Total time spent providing and/or coordinating discharge services: Greater than 30 minutes - Constitutional Vitals: Temp Pulse Resp BP Pulse Ox 97.7 F 70 16 116/70 93 02/13/17 10:53 02/13/17 10:53 02/13/17 10:53 02/13/17 10:53 02/13/17 10:53 General appearance: Present: A&O X 3, pleasant, no acute distress, answers questions appropriately - Head Head exam: Present: atraumatic - Eye Eye exam: Present: EOMI - Neck Neck exam general surgery: Present: supple - Respiratory Respiratory exam: Present: CTAB. Absent: rales, rhonchi, stridor, wheezes, tachypnea - Cardiovascular Cardiovascular exam: Present: RRR, +S1, +S2, systolic murmur - GI/Abdominal GI/Abdominal exam: Present: soft, no peritoneal signs. Absent: distended, firm , guarding, rigid, tenderness - Extremities Exam Extremities exam: Present: radial pulses palpable and symetrical. Absent: cyanotic, pedal edema, tenderness - Neurological Exam Neurological exam: Present: alert, oriented X3, no focal deficits. Absent: facial droop, speech deficit
[2017-02-14] MEDS: Heparin 25,000 UNIT/500 ML D5W 25,000 UNIT/500 ML MLS IVC SCH (05:53)
[2017-02-14] MEDS: Pantoprazole 40 MG VIAL IVP SCH (05:54)
[2017-02-14 07:05] VITALS: BP 112/67
[2017-02-14 07:43] LABS: BUN/Creatinine Ratio 20 (6-26); Blood Urea Nitrogen 18 mg/dL (7-20); Calcium 9.4 mg/dL (8.6-10.8); Carbon Dioxide 28 mEq/L (19-29); Chloride 102 mEq/L (98-109); Glucose 107 mg/dL (70-99); Osmolality,Calculated 288 (280-300); Potassium 3.4 mEq/L (3.5-4.5); Sodium 138 mEq/L (136-145); eGFR For African Americans > 60 (> 60); eGFR For Non-African Americans 60 (> 60)
[2017-02-14] MEDS: Aspirin 81 MG TAB.CHEW PO SCH (10:15)
[2017-02-14] MEDS: Metoprolol XL (24 HR) Succ 25 MG TAB.ER.24H PO SCH (10:15)
[2017-02-14] MEDS: Losartan/HCTZ 50-12.5 TABLET PO SCH (10:15)
--- NOTE | 2017-02-14 13:54 | Internal Med Progress Note ---
Date of Encounter: 02/14/17 Time of Encounter: 08:10 - Assessment and plan (1) NSTEMI (non-ST elevated myocardial infarction) Status: Acute Assessment and plan: Non-ST elevation [place] - risk factors include hypertension, hyperlipidemia and strong family history Patient presented with complaints of acute onset of nausea and vomiting - now improved History of PAF with dual-chamber pacemaker Continue aspirin, statin, beta jayjay, IV heparin Chest x-ray - no acute process EKG - sinus rhythm with no acute ST changes Echocardiogram - pending Troponin - 0.40 Echocardiogram - LVEF 40% normal LV chamber size, appearance suggestive of significant mid LAD stenosis versus Takotsubo cardiomyopathy Cardiology consult - recommended left heart catheter Transfer to [place] today (2) Nausea & vomiting Status: Acute Assessment and plan: Patient does have a history of GERD and history of chronic nausea and vomiting - presents to do his vomiting worse with food intake - symptoms now improved Continue IV pantoprazole, IV Zofran Ultrasound gallbladder - cholelithiasis and gallbladder wall thickening Qualifiers: Vomiting type: bilious vomiting Qualified Code(s): R11.14 - Bilious vomiting (3) UTI (urinary tract infection) Status: Acute Assessment and plan: Empiric IV Rocephin Qualifiers: Urinary tract infection type: acute cystitis Qualified Code(s): N30.00 - Acute cystitis without hematuria (4) Essential hypertension Status: Chronic Assessment and plan: Essential hypertension, controlled, continue home meds, monitor (5) Hyperlipidemia Status: Chronic Assessment and plan: Continue statin Qualifiers: Hyperlipidemia type: pure hypercholesterolemia Qualified Code(s): E78.00 - Pure hypercholesterolemia, unspecified; E78.0 - Pure hypercholesterolemia - Time Spent With Patient less than 15 minutes - Subjective Interval history: The patient is awake and alert. Not in any distress. Denies chest pain or shortness of breath. She states her nausea and vomiting have now resolved. Cardiology has evaluated the patient. 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 Cholelithiasis seen on ultrasound. IV heparin continued as per protocol. Patient has no other acute events or complaints. Patient is being transferred to [place] today. - Constitutional Vitals: Temp Pulse Resp BP Pulse Ox 98.4 F 56 14 112/67 94 02/14/17 06:58 02/14/17 06:58 02/14/17 06:58 02/14/17 06:58 02/14/17 06:58 General appearance: Present: A&O X 3, pleasant, no acute distress, answers questions appropriately - Head Head exam: Present: atraumatic - Eye Eye exam: Present: EOMI - ENT ENT exam: Present: mucous membranes moist - Neck Neck exam general surgery: Present: supple - Respiratory Respiratory exam: Absent: CTAB, rales, rhonchi, stridor, wheezes, tachypnea - Cardiovascular Cardiovascular exam: Present: RRR, +S1, +S2 - GI/Abdominal GI/Abdominal exam: Present: soft, no peritoneal signs. Absent: distended, firm , guarding, rigid, tenderness - Extremities Exam Extremities exam: Present: radial pulses palpable and symetrical. Absent: cyanotic, pedal edema, tenderness - Neurological Exam Neurological exam: Present: alert, oriented X3, no focal deficits Internal Medicine: Result - Labs CBC & Chem 7: 02/11/17 23:13 02/14/17 06:22 Labs: BMP 02/14/17 06:22 Sodium 138 Potassium 3.4 L Chloride 102 Carbon Dioxide 28 BUN 18 Creatinine 0.91 Glucose 107 H Calcium 9.4 - ABG Interpretation ABG results: PT/INR, D-dimer PT 10.9 Seconds (9.4-12.1) 02/11/17 23:13 - Impressions Impressions Abdomen Ultrasound 02/12/17 18:00 IMPRESSION: Gallstones and gallbladder wall thickening. No sonographic Cobos's sign could be elicited. Acute cholecystitis needs to be considered. HIDA scan should be considered. No biliary dilation. RECOMMENDATIONS: HIDA scan should be considered. D/ / 02/12/2017 18:42:02 Helio Ayers MD / [email or web address] Interpreting Provider: Helio Ayers MD Consult Discharge Plan - Plan Referrals: Efren Cameron MD [Partnered Physician] - Prescriptions: Aspirin 81 mg PO DAILY #30 Atorvastatin [Lipitor] 80 mg PO HS #30 tab Metoprolol XL (24 HR) Succ [Toprol Xl] 12.5 mg PO DAILY #30
== END 2017-02-14 12:04 | disposition short-term general hospital (02) | DRG 281 ==
LOC: EMEROO 21:06 → 3ANU 21:06
PROVIDERS: ADMIT Internal Medicine; ATTEND Internal Medicine